=== PATIENT | male | born 1970 | race African-American/Black ===

== ENCOUNTER 2019-08-21 10:10 | Emergency (ER) | payer OTHER ==
[2019-08-21] MEDS ORDERED: ASPIRIN 325 MG TAB PO ONE (10:33)
--- NOTE | 2019-08-21 11:02 | Emergency Department Report ---
{null, ED Chest Pain HPI - General Chief Complaint: Chest Pain Stated Complaint: CHEST PAIN Time Seen by Provider: 08/21/19 10:45 Source: patient Mode of arrival: Stretcher Limitations: Other - History of Present Illness Initial Comments: 49-year-old male with a past medical history of GERD, hypertension, irregular heartbeat, chronic back pain, and cocaine abuse presents to the hospital complains of left-sided chest pain after being arrested. Patient went to court and it was determined he was to be arrested. While being placed into the detention cell he began to have left-sided sharp chest pain, dizziness, and mild shortness of breath. Patient denies nausea, vomiting, or diaphoresis. Pain radiates to left shoulder. Patient received nitroglycerin in route to the hospital with some improvement but pain is returning to a lesser extent at this time. Patient states for the last week he has had fevers, nausea, vomiting, diarrhea, and cough productive of mucus. States temperature last night was 102 degrees. 2 weeks ago patient traveled to and from [facility] via car. He denies history of PE/DVT, or international travel. Patient also states he has a history of "GA". He lives several years in which he had work-up but is unclear that patient actually had a cardiac cath but has not required angioplasty, or required stent placement. He does not take aspirin, Plavix, and has not had his blood pressure medication in the last several months. Patient also admits to cocaine use 2 days ago. Pt also c/o rash to b/l lower chest wall x 1 week. Occ asionally puritic - Related Data Home Medications Medication Instructions Recorded Confirmed Last Taken LORazepam [Ativan] 1 mg PO QHS 07/17/13 07/17/13 Unknown Previous Rx's Medication Instructions Recorded Last Taken Type Amlodipine Besylate [Norvasc] 5 mg PO DAILY #30 tablet 08/21/19 Unknown Rx Aspirin EC [Ecotrin] 325 mg PO QDAY #30 tablet. 08/21/19 Unknown Rx Famotidine [Pepcid] 20 mg PO BID #30 tablet 08/21/19 Unknown Rx Allergies Allergy/AdvReac Type Severity Reaction Status Date / Time No Known Allergies Allergy Verified 08/21/19 11:06 Heart Score - HEART Score History: Slightly suspicious EKG: Normal Age: 45-65 Risk factors: > 3 risk factors or hx of atherosclerotic disease Troponin: < normal limit HEART Score: 3 ED Review of Systems ROS: Stated complaint: CHEST PAIN Other details as noted in HPI Comment: All other systems reviewed and negative ED Past Medical Hx - Past Medical History Previous Medical History?: Yes Hx Hypertension: Yes Hx GERD: Yes Hx Seizures: Yes Additional medical history: testicular cancer. "irregular heartbeat". chronic back pain - Surgical History Additional Surgical History: right testicle removed - Social History Smoking Status: Former Smoker Substance Use Type: Alcohol, Cocaine, Marijuana - Medications Home Medications: Home Medications Medication Instructions Recorded Confirmed Last Taken Type LORazepam [Ativan] 1 mg PO QHS 07/17/13 07/17/13 Unknown History Amlodipine Besylate [Norvasc] 5 mg PO DAILY #30 tablet 08/21/19 Unknown Rx Aspirin EC [Ecotrin] 325 mg PO QDAY #30 tablet. 08/21/19 Unknown Rx Famotidine [Pepcid] 20 mg PO BID #30 tablet 08/21/19 Unknown Rx ED Physical Exam - General Limitations: Other - Other Other exam information: General: No acute distress Head: Atraumatic Eyes: normal appearance ENT: Moist mucous membranes Neck: Normal appearance, no midline tenderness Chest: Clear to auscultation bilaterally CV: Regular rate and rhythm Abdomen: Soft, normal bowel sounds, nontender, nondistended, no rebound or guarding Back: Normal inspection Extremity: Normal inspection, full range of motion, no calf tenderness or leg edema Neuro: Alert O x 3, no facial asymmetry, speech clear, no gross motor sensory deficit Psych: Appropriate behavior Skin: Circular hyperpigmented rash to bilateral lower chest wall anteriorly with flat borders ED Course Vital Signs 08/21/19 08/21/19 08/21/19 10:32 11:00 11:15 Temperature 98.1 F Pulse Rate 76 74 71 Respiratory 20 20 19 Rate Blood Pressure 155/74 142/89 Blood Pressure 120/76 [Right] O2 Sat by Pulse 95 93 95 Oximetry 08/21/19 08/21/19 08/21/19 11:30 11:45 12:15 Temperature Pulse Rate 70 76 Respiratory 16 19 Rate Blood Pressure 135/90 145/82 151/86 Blood Pressure [Right] O2 Sat by Pulse 96 96 95 Oximetry 08/21/19 12:45 Temperature Pulse Rate 72 Respiratory 21 Rate Blood Pressure 167/80 Blood Pressure [Right] O2 Sat by Pulse 95 Oximetry KHANH score - Khanh Score Age > 65: (0) No Aspirin use within the Past 7 Days: (0) No 3 or more CAD Risk Factors: (1) Yes 2 or more Angina events in past 24 hrs: (1) Yes Known CAD with more than 50% Stenosis: (0) No Elevated Cardiac Markers: (0) No ST Deviation Greater than 0.5mm: (0) No KHANH Score: 2 ED Medical Decision Making - Lab Data Result diagrams: 08/21/19 10:57 08/21/19 10:57 Lab Results 08/21/19 08/21/19 08/21/19 Range/Units 10:57 10:57 10:57 WBC 14.1 H (4.5-11.0) K/mm3 RBC 5.25 H (3.65-5.03) M/mm3 Hgb 15.3 H (11.8-15.2) gm/dl Hct 46.5 H (35.5-45.6) % MCV 89 (84-94) fl MCH 29 (28-32) pg MCHC 33 (32-34) % RDW 14.1 (13.2-15.2) % Plt Count 204 (140-440) K/mm3 Lymph % (Auto) 15.9 (13.4-35.0) % [place] % (Auto) 6.5 (0.0-7.3) % Eos % (Auto) 0.6 (0.0-4.3) % Baso % (Auto) 0.7 (0.0-1.8) % Lymph # 2.2 (1.2-5.4) K/mm3 [place] # 0.9 H (0.0-0.8) K/mm3 Eos # 0.1 (0.0-0.4) K/mm3 Baso # 0.1 (0.0-0.1) K/mm3 Seg Neutrophils % 76.3 H (40.0-70.0) % Seg Neutrophils # 10.8 H (1.8-7.7) K/mm3 PT 15.6 H (12.2-14.9) Sec. INR 1.22 H (0.87-1.13) D-Dimer < 135.00 (0-234) ng/mlDDU Sodium 137 (137-145) mmol/L Potassium 3.9 (3.6-5.0) mmol/L Chloride 103.0 (98-107) mmol/L Carbon Dioxide 18 L (22-30) mmol/L Anion Gap 20 mmol/L BUN 17 (9-20) mg/dL Creatinine 0.9 (0.8-1.5) mg/dL Estimated GFR > 60 ml/min BUN/Creatinine Ratio 19 % Glucose 109 H (75-100) mg/dL Calcium 9.4 (8.4-10.2) mg/dL Magnesium 2.10 (1.7-2.3) mg/dL Troponin T < 0.010 (0.00-0.029) ng/mL Urine Opiates Screen Urine Methadone Screen Ur Barbiturates Screen Ur Phencyclidine Scrn Ur Amphetamines Screen U Benzodiazepines Scrn Urine Cocaine Screen U Marijuana (THC) Screen Drugs of Abuse Note 08/21/19 08/21/19 Range/Units 11:35 13:37 WBC (4.5-11.0) K/mm3 RBC (3.65-5.03) M/mm3 Hgb (11.8-15.2) gm/dl Hct (35.5-45.6) % MCV (84-94) fl MCH (28-32) pg MCHC (32-34) % RDW (13.2-15.2) % Plt Count (140-440) K/mm3 Lymph % (Auto) (13.4-35.0) % [place] % (Auto) (0.0-7.3) % Eos % (Auto) (0.0-4.3) % Baso % (Auto) (0.0-1.8) % Lymph # (1.2-5.4) K/mm3 [place] # (0.0-0.8) K/mm3 Eos # (0.0-0.4) K/mm3 Baso # (0.0-0.1) K/mm3 Seg Neutrophils % (40.0-70.0) % Seg Neutrophils # (1.8-7.7) K/mm3 PT (12.2-14.9) Sec. INR (0.87-1.13) D-Dimer (0-234) ng/mlDDU Sodium (137-145) mmol/L Potassium (3.6-5.0) mmol/L Chloride (98-107) mmol/L Carbon Dioxide (22-30) mmol/L Anion Gap mmol/L BUN (9-20) mg/dL Creatinine (0.8-1.5) mg/dL Estimated GFR ml/min BUN/Creatinine Ratio % Glucose (75-100) mg/dL Calcium (8.4-10.2) mg/dL Magnesium (1.7-2.3) mg/dL Troponin T < 0.010 (0.00-0.029) ng/mL Urine Opiates Screen Presumptive negative Urine Methadone Screen Presumptive negative Ur Barbiturates Screen Presumptive negative Ur Phencyclidine Scrn Presumptive negative Ur Amphetamines Screen Presumptive negative U Benzodiazepines Scrn Presumptive negative Urine Cocaine Screen Presumptive positive U Marijuana (THC) Screen Presumptive positive Drugs of Abuse Note Disclamer - EKG Data -: EKG Interpreted by Id EKG shows normal: sinus rhythm, ST-T waves (no stemi) Rate: normal - EKG Data 08/21/19 14:51 Second EKG performed at 14:14 shows no acute findings. Intermittent PVCs noted no signs of ischemia or ST elevation GA - Radiology Data Radiology results: report reviewed CHEST 1 VIEW INDICATION / CLINICAL INFORMATION: Chest Pain. COMPARISON: None available. FINDINGS: SUPPORT DEVICES: None. HEART / MEDIASTINUM: No significant abnormality. LUNGS / PLEURA: No significant pulmonary or pleural abnormality. No pneumothorax. ADDITIONAL FINDINGS: No significant additional findings. IMPRESSION: No acute pulmonary or pleural abnormality - Medical Decision Making Patient presents to the hospital with left-sided sharp chest pain radiating to the shoulder and after being placed into a detention cell. During ED stay patient h ad EKGs without signs of ischemia, troponin negative x2, negative d-dimer, and unremarkable chest x-ray. PVCs noted on EKG but patient gives a history of irregular heartbeat and states that his heart skips a beat therefore PVCs might be chronic. There are no electrolyte abnormalities. Pain is sharp and atypical of acute coronary syndrome. Patient feels better with Toradol IV. Patient be discharged to follow-up with cardiology as outpatient. Patient also has a rash to torso which differential includes ringworm versus tinea versicolor. Rash appears to have more of a tinea versicolor appearance and therefore patient treated with fluconazole 400 mg p.o. x1 prior to discharge to the detention. Patient states that he has chronic intermittent shortness of breath even prior to today - Differential Diagnosis GA, anxiety, pneumonia, costochondritis, PE Critical Care Time: No Critical care attestation.: If time is entered above; I have spent that time in minutes in the direct care of this critically ill patient, excluding procedure time. ED Disposition Clinical Impression: Atypical chest pain, Tinea versicolor, Chronic hypertension, Noncompliance with medication regimen, Cocaine abuse Disposition: TO HOME OR SELFCARE Is pt being admited?: No Does the pt Need Aspirin: No Condition: Stable Instructions: Chest Pain (ED), Tinea Versicolor (ED), Hypertension (ED) Additional Instructions: Take the medication as prescribed. Follow-up with your doctor or doctor/clinic provided. Return if symptoms worsen as indicated by your discharge instructions. You received one dose of fluconazole in the ER to treat your skin rash. Prescriptions: Aspirin EC [Ecotrin] 325 mg PO QDAY #30 tablet. Amlodipine Besylate [Norvasc] 5 mg PO DAILY #30 tablet Famotidine [Pepcid] 20 mg PO BID #30 tablet Referrals: PRIMARY CARE, [Primary Care Provider] - 3-5 Days [facility] [Provider Group] - 2-3 Days MAYELA ALBERTS MD [Staff Physician] - 3-5 Days (Primary care doctor ) Time of Disposition: 15:06 }
--- NOTE | 2019-08-21 11:11 | XRay Report ---
{null, CHEST 1 VIEW INDICATION / CLINICAL INFORMATION: Chest Pain. COMPARISON: None available. FINDINGS: SUPPORT DEVICES: None. HEART / MEDIASTINUM: No significant abnormality. LUNGS / PLEURA: No significant pulmonary or pleural abnormality. No pneumothorax. ADDITIONAL FINDINGS: No significant additional findings. IMPRESSION: No acute pulmonary or pleural abnormality Signer Name: Ravi Simon MD FACR Signed: 08/21/2019 11:07 AM Workstation Name: [id number] }
[2019-08-21 11:13] LABS: Basophils # (Auto) 0.1 K/mm3 (0.0-0.1); Basophils % (Auto) 0.7 % (0.0-1.8); Eosinophils # (Auto) 0.1 K/mm3 (0.0-0.4); Eosinophils % (Auto) 0.6 % (0.0-4.3); Hematocrit 46.5 % (35.5-45.6); Hemoglobin 15.3 gm/dl (11.8-15.2); Lymphocytes # (Auto) 2.2 K/mm3 (1.2-5.4); Lymphocytes % (Auto) 15.9 % (13.4-35.0); Mean Corpuscular HGB Conc 33 % (32-34); Mean Corpuscular Volume 89 fl (84-94); Monocytes # (Auto) 0.9 K/mm3 (0.0-0.8); Monocytes % (Auto) 6.5 % (0.0-7.3); Platelet Count 204 K/mm3 (140-440); Red Blood Count 5.25 M/mm3 (3.65-5.03); Red Cell Distribution Width 14.1 % (13.2-15.2)
[2019-08-21 11:23] LABS: INR 1.22 (0.87-1.13)
[2019-08-21 11:34] LABS: BUN/Creatinine Ratio 19; Blood Urea Nitrogen 17 mg/dL (9-20); Calcium 9.4 mg/dL (8.4-10.2); Hemolysis Index 6
[2019-08-21] MEDS ORDERED: KETOROLAC 30 MG/1 ML INJ IV ONE (11:47)
[2019-08-21] MEDS ORDERED: FAMOTIDINE 20 MG/2 ML INJ IV ONE (11:47)
[2019-08-21 12:10] LABS: Amphetamine Screen,Urine PRESUMPTIVE NEGATIVE; Benzodiazepines Screen,Urine PRESUMPTIVE NEGATIVE; Methadone Screen,Urine PRESUMPTIVE NEGATIVE; Opiate Screen,Urine PRESUMPTIVE NEGATIVE
[2019-08-21 12:39] LABS: Cannabinoid Screen,Urine PRESUMPTIVE POSITIVE; Cocaine Screen,Urine PRESUMPTIVE POSITIVE
[2019-08-21] MEDS ORDERED: FLUCONAZOLE 100 MG TAB PO ONE (14:58)
[2019-08-21] MEDS ORDERED: amLODIPine 5 MG TAB PO ONE (14:58)
[2019-08-21 16:24] VITALS: BP 167/93
== END 2019-08-21 16:05 | disposition home or self-care (01) ==
LOC: ED 10:10
DX: B36.0 Pityriasis versicolor (principal); R07.89 Other chest pain; I10 Essential (primary) hypertension; F14.10 Cocaine abuse, uncomplicated; K21.9 Gastro-esophageal reflux disease without esophagitis; Z91.14 Patient's other noncompliance with medication regimen; Z87.891 Personal history of nicotine dependence; Z79.899 Other long term (current) drug therapy
CPT/HCPCS: 36415; 71045; 80048; 80307; 83735; 84484; 85025; 85379; 85610; 93005; 93010; 96374; 96375; 99285; J1885

== ENCOUNTER 2020-12-17 09:40 | Emergency (ER) | payer SELFPAY ==
[2020-12-17 09:58] VITALS: BP 192/118
[2020-12-17] MEDS ORDERED: HYDROcodone/ACETAMINOPHEN 5-325 MG TAB PO ONE (11:14)
[2020-12-17] MEDS ORDERED: SODIUM CHLORIDE 0.9% 1000 ML 0 ML ONE (11:21)
--- NOTE | 2020-12-17 11:40 | Emergency Department Report ---
ED General Adult HPI - General Chief complaint: Pain General Stated complaint: LT SIDE GLANDS SWOLLEN Time Seen by Provider: 12/17/20 10:48 Source: patient Mode of arrival: Ambulatory Limitations: No Limitations - History of Present Illness Initial comments: Patient is a 50-year-old male who presents emergency room with complaints of "swollen glands" that began 3 weeks ago. Patient reports that he believes he has swollen glands on the left side of his neck, left upper back, left chest. He reports that he began feeling swollen glands after getting his second COVID- 19 vaccination. He reports that he received the Pfizer vaccination. He states that he did not have this after his first dose of the vaccine. He denies any fever, chills, nausea, vomiting, diarrhea, chest pain, shortness of breath, abdominal pain. Patient has a past medical history of hypertension, he states that he does not like taking medication, he states he was last on blood pressure medication while incarcerated from August 2019- September 2019, he states that he does not know what he was on at that time. He has not followed up with a primary care doctor. He denies any medication allergies. Severity scale (0 -10): 8 - Related Data Home Medications Medication Instructions Recorded Confirmed Last Taken LORazepam [Ativan] 1 mg PO QHS 07/17/13 07/17/13 Unknown Previous Rx's Medication Instructions Recorded Last Taken Type Amlodipine Besylate [Norvasc] 5 mg PO DAILY #30 tablet 08/21/19 Unknown Rx Aspirin EC [Ecotrin] 325 mg PO QDAY #30 tablet. 08/21/19 Unknown Rx Famotidine [Pepcid] 20 mg PO BID #30 tablet 08/21/19 Unknown Rx Naproxen [EC-Naprosyn] 375 mg PO BID PRN #14 tablet. 12/17/20 Unknown Rx amLODIPine 5 mg PO DAILY #30 tab 12/17/20 Unknown Rx methOCARBAMOL [Robaxin TAB] 500 mg PO BID PRN #20 tab 12/17/20 Unknown Rx Allergies Allergy/AdvReac Type Severity Reaction Status Date / Time No Known Allergies Allergy Verified 12/17/20 09:53 ED Review of Systems ROS: Stated complaint: LT SIDE GLANDS SWOLLEN Other details as noted in HPI Comment: All other systems reviewed and negative ED Past Medical Hx - Past Medical History Hx Hypertension: Yes Hx GERD: Yes Hx Seizures: No Additional medical history: testicular cancER. "irregular heartbeat". chronic back pain - Surgical History Additional Surgical History: right testicle removed - Social History Smoking Status: Never Smoker Substance Use Type: Marijuana - Medications Home Medications: Home Medications Medication Instructions Recorded Confirmed Last Taken Type LORazepam [Ativan] 1 mg PO QHS 07/17/13 07/17/13 Unknown History Amlodipine Besylate [Norvasc] 5 mg PO DAILY #30 tablet 08/21/19 Unknown Rx Aspirin EC [Ecotrin] 325 mg PO QDAY #30 tablet. 08/21/19 Unknown Rx Famotidine [Pepcid] 20 mg PO BID #30 tablet 08/21/19 Unknown Rx Naproxen [EC-Naprosyn] 375 mg PO BID PRN #14 tablet. 12/17/20 Unknown Rx amLODIPine 5 mg PO DAILY #30 tab 12/17/20 Unknown Rx methOCARBAMOL [Robaxin TAB] 500 mg PO BID PRN #20 tab 12/17/20 Unknown Rx ED Physical Exam - General Limitations: No Limitations General appearance: alert, in no apparent distress - Head Head exam: Present: atraumatic, normocephalic - Eye Eye exam: Present: normal appearance - ENT ENT exam: Present: mucous membranes moist - Neck Neck exam: Present: normal inspection, full ROM. Absent: tenderness, meningismus, lymphadenopathy, thyromegaly - Respiratory Respiratory exam: Present: normal lung sounds bilaterally. Absent: respiratory distress, wheezes, rales, rhonchi, stridor, accessory muscle use, decreased breath sounds, prolonged expiratory - Cardiovascular Cardiovascular Exam: Present: regular rate, normal rhythm, normal heart sounds. Absent: systolic murmur, diastolic murmur, rubs, gallop - Extremities Exam Extremities exam: Present: other (mild ttp overlying the trapezius muscle and left chest wall muscles, no edema, no erythema, no increased warmth, no LAD) - Neurological Exam Neurological exam: Present: alert, oriented X3 - Psychiatric Psychiatric exam: Present: normal affect, normal mood - Skin Skin exam: Present: warm, dry, intact ED Course Vital Signs 12/17/20 09:56 Temperature 98.3 F Pulse Rate 86 Respiratory 20 Rate Blood Pressure 192/118 O2 Sat by Pulse 99 Oximetry ED Medical Decision Making - Lab Data Result diagrams: 12/17/20 11:20 12/17/20 11:20 Lab Results 12/17/20 12/17/20 Range/Units 11:20 11:20 WBC 11.6 H (4.5-11.0) K/mm3 RBC 5.47 H (3.65-5.03) M/mm3 Hgb 15.9 H (11.8-15.2) gm/dl Hct 47.7 H (35.5-45.6) % MCV 87 (84-94) fl MCH 29 (28-32) pg MCHC 33 (32-34) % RDW 13.8 (13.2-15.2) % Plt Count 214 (140-440) K/mm3 Lymph % (Auto) 30.3 (13.4-35.0) % [place] % (Auto) 7.5 H (0.0-7.3) % Eos % (Auto) 1.7 (0.0-4.3) % Baso % (Auto) 0.8 (0.0-1.8) % Lymph # (Auto) 3.5 (1.2-5.4) K/mm3 [place] # (Auto) 0.9 H (0.0-0.8) K/mm3 Eos # (Auto) 0.2 (0.0-0.4) K/mm3 Baso # (Auto) 0.1 (0.0-0.1) K/mm3 Seg Neutrophils % 59.7 (40.0-70.0) % Seg Neutrophils # 6.9 (1.8-7.7) K/mm3 Sodium 137 (137-145) mmol/L Potassium 3.9 (3.6-5.0) mmol/L Chloride 101.2 (98-107) mmol/L Carbon Dioxide 23 (22-30) mmol/L Anion Gap 17 mmol/L BUN 12 (9-20) mg/dL Creatinine 0.9 (0.8-1.3) mg/dL Estimated GFR > 60 ml/min BUN/Creatinine Ratio 13 % Glucose 94 (75-100) mg/dL Calcium 9.2 (8.4-10.2) mg/dL Total Bilirubin 0.20 (0.1-1.2) mg/dL AST 25 (5-40) units/L ALT 28 (7-56) units/L Alkaline Phosphatase 90 (35-129) units/L Total Creatine Kinase 321 H (55-170) units/L C-Reactive Protein 0.30 (0.00-1.30) mg/dL Total Protein 7.2 (6.3-8.2) g/dL Albumin 4.4 (3.9-5) g/dL Albumin/Globulin Ratio 1.6 % - Medical Decision Making Patient is a 50-year-old male who presents emergency room with complaints of "swollen glands" that began 3 weeks ago. Patient reports that he believes he has swollen glands on the left side of his neck, left upper back, left chest. He reports that he began feeling swollen glands after getting his second COVID- 19 vaccination. He reports that he received the Pfizer vaccination. He states that he did not have this after his first dose of the vaccine. He denies any fever, chills, nausea, vomiting, diarrhea, chest pain, shortness of breath, abdominal pain. Patient has a past medical history of hypertension, he states that he does not like taking medication, he states he was last on blood pressure medication while incarcerated from August 2019- September 2019, he states that he does not know what he was on at that time. He has not followed up with a primary care doctor. He denies any medication allergies. Vitals with elevated blood pressure, patient has not taken blood pressure medication in over a year, he has no symptoms related to his blood pressure, the up-to-date medical literature does not recommend emergently lowering asymptomatic elevated blood pressure, will start patient on 5 mg of amlodipine and discussed lifestyle modifications and primary care follow-up with patient. On exam:mild ttp overlying the trapezius muscle and left chest wall muscles, no edema, no erythema, no increased warmth, no LAD. There are no visualized or palpable lymphadenopathy. Patient has some mild muscular tenderness palpation but no deformities and has full range of motion, there are no skin changes, no edema, no erythema, no increased warmth. Labs are stable, there is a very mild elevation in CK, discussed increasing oral hydration. Patient given pain medication while in the emergency department as he did not drive and symptoms improved and he was feeling better and ready to go home. Patient given prescription for medications. Advised patient Please take medication as prescribed. Increase your water intake. Eat a low-sodium diet. Incorporate 30-60 minutes daily exercise. Follow-up with your primary care doctor for reexamination. Return to emergency room for new or worsening symptoms. Critical care attestation.: If time is entered above; I have spent that time in minutes in the direct care of this critically ill patient, excluding procedure time. ED Disposition Clinical Impression: Myalgia, Elevated blood pressure reading Disposition: TO HOME OR SELFCARE Is pt being admited?: No Does the pt Need Aspirin: No Condition: Stable Instructions: Musculoskeletal Pain, Managing Your Hypertension Additional Instructions: Please take medication as prescribed. Increase your water intake. Eat a low- sodium diet. Incorporate 30-60 minutes daily exercise. Follow-up with your primary care doctor for reexamination. Return to emergency room for new or worsening symptoms. Prescriptions: amLODIPine 5 mg PO DAILY #30 tab Naproxen [EC-Naprosyn] 375 mg PO BID PRN #14 tablet.dr CASTREJON Reason: pain methOCARBAMOL [Robaxin TAB] 500 mg PO BID PRN #20 tab PRN Reason: muscle spasm/pain Referrals: MAYELA ALBERTS MD [Staff Physician] - 2-3 Days [facility] [Provider Group] - 2-3 Days Time of Disposition: 12:41 Print Language: SAMMARINESE
[2020-12-17 11:48] LABS: Basophils # (Auto) 0.1 K/mm3 (0.0-0.1); Basophils % (Auto) 0.8 % (0.0-1.8); Eosinophils # (Auto) 0.2 K/mm3 (0.0-0.4); Eosinophils % (Auto) 1.7 % (0.0-4.3); Hematocrit 47.7 % (35.5-45.6); Hemoglobin 15.9 gm/dl (11.8-15.2); Lymphocytes # (Auto) 3.5 K/mm3 (1.2-5.4); Lymphocytes % (Auto) 30.3 % (13.4-35.0); Mean Corpuscular HGB Conc 33 % (32-34); Mean Corpuscular Volume 87 fl (84-94); Monocytes # (Auto) 0.9 K/mm3 (0.0-0.8); Monocytes % (Auto) 7.5 % (0.0-7.3); Platelet Count 214 K/mm3 (140-440); Red Blood Count 5.47 M/mm3 (3.65-5.03); Red Cell Distribution Width 13.8 % (13.2-15.2)
[2020-12-17 12:11] LABS: Alanine Aminotransferase 28 units/L (7-56); Albumin 4.4 g/dL (3.9-5); BUN/Creatinine Ratio 13; Blood Urea Nitrogen 12 mg/dL (9-20); Calcium 9.2 mg/dL (8.4-10.2); Hemolysis Index 30
== END 2020-12-17 12:53 | disposition home or self-care (01) ==
LOC: ED 09:40
DX: M79.10 Myalgia, unspecified site (principal); R03.0 Elevated blood-pressure reading, without diagnosis of hypertension; I10 Essential (primary) hypertension; K21.9 Gastro-esophageal reflux disease without esophagitis; F12.90 Cannabis use, unspecified, uncomplicated; Z79.899 Other long term (current) drug therapy; Z98.890 Other specified postprocedural states
CPT/HCPCS: 36415; 80053; 82550; 85025; 86140; J7030